=== PATIENT | female | born 1980 | race Caucasian/White ===

== ENCOUNTER 2017-04-14 17:03 | Emergency (ER) | payer BC ==
[~2017-04-14] VITALS: Ht 162.6 cm; Wt 108.9 kg
--- NOTE | 2017-04-14 17:07 | Emergency Room Report ---
History of Present Illness Time Seen by [id number] Presenting Problem in Triage Pt arrived: Presenting Problem: Onset of symptoms date/time:/ or onset unknown for: Treatment Prior to Arrival: MGMT CONSULTANT Provided by: Sepsis Risk Assessment: Temp: B/P: MAP: Pulse: Resp: Recent fever? Clinical Suspician of Infection? Mental Status: Sepsis Risk: Have you (or family members/close friends) recently traveled outside the [place]? If Yes, where/when: Have you had exposure to infectious disease within the past month? TB? Other? Specify: Source patient, RN notes reviewed Exam Limitations no limitations Comment cut finger with a clean hunting knife about 1 hour MGMT CONSULTANT while trying to open a box...cut left index finger Cardiac Chest Pain Chest pain indicative of cardiac No ALLERGIES Uncoded Allergies: PCN (Intermediate, I-HIVES 04/14/17) Home Medications Reported Medications No Known Home Medications History Medical History General Angina: No [place]: No Hypertension? Yes Hyperlipidemia? No COPD? No Asthma? No CVA? No Seizures? No Diabetes? No GB Disease: No MRSA? No TB? No Cancer? No Immunization Hx DT/Tetanus UNKNOWN Surgical Hx Previous Surgery?Y TONSILS Social History Alcohol Alcohol: No Review of Systems All Other Systems Reviewed and Negative Constitutional see HPI Skin see HPI Physical Exam Vital Signs Vital Signs Date Time Temp Pulse Resp B/P Pulse O2 O2 Flow FiO2 Ox Delivery Rate 04/14 172 97.9 89 18 177/103 98 General Appearance normal appearance, WD/WN, no apparent distress Respiratory Status No: respiratory distress. Cardiovascular normal exam, regular rate/rhythm Extremities 0.5 cm cut on lateral aspect of left index finger over the first phalanx Neurologic alert, director external communications II-XII nml as tested Medical Decision Making LABS/Meds/Orders Pt receiving controlled substance in ED? No Results/Orders Current Medication Orders Sig/Kely Start time Last Medication Dose Route Stop Time Status Admin Lidocaine HCl 0 .STK-MED ONE 04/14 173 DC .ROUTE Diphtheria/Pertussis/ 0.5 ML ONCE ONE 04/14 173 DC 04/14 Tetanus Vacc IM 04/14 1731 1741 Diphtheria/Pertussis/ 0 .STK-MED ONE 04/14 1729 DC Tetanus Vacc IM Procedures Laceration/Wound Repair Laceration/Wound Repair Risks/benefits discussed with pt/guardian? Yes Tetanus status not up to date, given in the ED Wound Location finger(s) Wound Length (cm) 0.5 Wound's Depth, Shape sucutaneous tissue Wound Explored clean Wound Prep Hibiclens, Saline Wound Debrided none Wound Repaired With sutures Sterile Dressing Applied Yes Departure Departure Time of Disposition 1751 Disposition DC Home or Self Care(routine) Clinical Impression Primary Impression: Laceration of left index finger w/o foreign body w/o damage to nail Qualifiers: Encounter type: initial encounter Qualified Code: S61.211A - Laceration without foreign body of left index finger without damage to nail, initial encounter Condition STABLE Patient Instructions DI for Laceration Repair -- Finger, Laceration Repair Additional Instructions Keep stitches dry for 2 days. Change dressing daily. Followup with PCP in 10 days to remove stitches. Discharge Counseling Counseled pt/family regarding diagnosis, home care, follow up needs Prescriptions Current Visit Scripts MUPIROCIN 2% (Bactroban Oint) 0 GM TP DAILY #1 TUBE ED Critical Care Critical Care No If Critical Care minutes are documented, the time involved in the performance of seperately reportable procedures was not counted toward critical care time documented. I directly delivered medical care to this critically ill and/or injured patient. Timely evaluation and treatment was necessary to address the significant organ system(s) dysfunction present in this patient. at 1755
--- NOTE | 2017-04-14 17:07 | Emergency Room Report ---
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 Clinical Suspician of Infection? Mental Status: Sepsis Risk: Have you (or family members/close friends) recently traveled outside the [place]? If Yes, where/when: Have you had exposure to infectious disease within the past month? TB? Other? Specify: Source patient, RN notes reviewed Exam Limitations no limitations Comment cut finger with a clean hunting knife about 1 hour ANIMAL CARE PROVIDER while trying to open a box...cut left index finger Cardiac Chest Pain Chest pain indicative of cardiac No ALLERGIES Uncoded Allergies: PCN (Intermediate, I-HIVES 04/14/17) Home Medications Reported Medications No Known Home Medications History Medical History General Angina: No [place]: No Hypertension? Yes Hyperlipidemia? No COPD? No Asthma? No CVA? No Seizures? No Diabetes? No GB Disease: No MRSA? No TB? No Cancer? No Immunization Hx DT/Tetanus UNKNOWN Surgical Hx Previous Surgery?Y TONSILS Social History Alcohol Alcohol: No Review of Systems All Other Systems Reviewed and Negative Constitutional see HPI Skin see HPI Physical Exam Vital Signs Vital Signs Date Time Temp Pulse Resp B/P Pulse O2 O2 Flow FiO2 Ox Delivery Rate 04/14 172 97.9 89 18 177/103 98 General Appearance normal appearance, WD/WN, no apparent distress Respiratory Status No: respiratory distress. Cardiovascular normal exam, regular rate/rhythm Extremities 0.5 cm cut on lateral aspect of left index finger over the first phalanx Neurologic alert, director advanced II-XII nml as tested Medical Decision Making LABS/Meds/Orders Pt receiving controlled substance in ED? No Results/Orders Current Medication Orders Sig/Kely Start time Last Medication Dose Route Stop Time Status Admin Lidocaine HCl 0 .STK-MED ONE 04/14 173 DC .ROUTE Diphtheria/Pertussis/ 0.5 ML ONCE ONE 04/14 173 DC 04/14 Tetanus Vacc IM 04/14 1731 1741 Diphtheria/Pertussis/ 0 .STK-MED ONE 04/14 1729 DC Tetanus Vacc IM Procedures Laceration/Wound Repair Laceration/Wound Repair Risks/benefits discussed with pt/guardian? Yes Tetanus status not up to date, given in the ED Wound Location finger(s) Wound Length (cm) 0.5 Wound's Depth, Shape sucutaneous tissue Wound Explored clean Wound Prep Hibiclens, Saline Wound Debrided none Wound Repaired With sutures Sterile Dressing Applied Yes Departure Departure Time of Disposition 1751 Disposition DC Home or Self Care(routine) Clinical Impression Primary Impression: Laceration of left index finger w/o foreign body w/o damage to nail Qualifiers: Encounter type: initial encounter Qualified Code: S61.211A - Laceration without foreign body of left index finger without damage to nail, initial encounter Condition STABLE Patient Instructions DI for Laceration Repair -- Finger, Laceration Repair Additional Instructions Keep stitches dry for 2 days. Change dressing daily. Followup with PCP in 10 days to remove stitches. Discharge Counseling Counseled pt/family regarding diagnosis, home care, follow up needs Prescriptions Current Visit Scripts MUPIROCIN 2% (Bactroban Oint) 0 GM TP DAILY #1 TUBE ED Critical Care Critical Care No If Critical Care minutes are documented, the time involved in the performance of seperately reportable procedures was not counted toward critical care time documented. I directly delivered medical care to this critically ill and/or injured patient. Timely evaluation and treatment was necessary to address the significant organ system(s) dysfunction present in this patient. at 1755
[2017-04-14 18:06] VITALS: BP 136/47
--- OUTSIDE RECORDS SUMMARY | 2017-04-24 23:29 | External Medical Summary Rpt | CCD ---
Author Author BETTY Address Unknown Phone [email or web address] Purpose Continuity of Care Document - through 2016
--- OUTSIDE RECORDS SUMMARY | 2017-04-24 23:29 | External Medical Summary Rpt | CCD ---
Author Author BETTY Address Unknown Phone [email or web address] Purpose Continuity of Care Document - through 2016
--- OUTSIDE RECORDS SUMMARY | 2017-04-24 23:29 | External Medical Summary Rpt ---
Author Author BETTY Treviño, BETTY Treviño Organization [employer] Address Unknown Phone Unavailable
--- OUTSIDE RECORDS SUMMARY | 2017-04-24 23:29 | External Medical Summary Rpt | CCD ---
Author Author BETTY Address Unknown Phone Purpose Continuity of Care Document - through 2016
--- OUTSIDE RECORDS SUMMARY | 2017-04-24 23:29 | External Medical Summary Rpt | CCD ---
Demographics Preferred Language Japanese Marital Status Unknown Protestant Affiliation Unknown Race Unknown Ethnic Group Unknown Author Author , BETTY HERNÁNDEZ Address Unknown Phone Immunization Unable to retrieve immunization data due to connection failure with Immunization Registry. Please try again later.
--- OUTSIDE RECORDS SUMMARY | 2017-04-24 23:29 | External Medical Summary Rpt | CCD ---
Demographics Preferred Language Thai Marital Status Unknown Anabaptism Affiliation Unknown Race Unknown Ethnic Group Unknown Author Author , BETTY HERNÁNDEZ Address Unknown Phone Immunization Unable to retrieve immunization data due to connection failure with Immunization Registry. Please try again later.
== END 2017-04-14 18:07 | disposition home or self-care (01) ==
LOC: ER 17:03
PROC: 0HQGXZZ Repair Left Hand Skin, External Approach (ICD-10-PCS; principal; 2017-04-14)
DX: S61.211A Laceration without foreign body of left index finger without damage to nail, initial encounter (principal); Z23 Encounter for immunization; Z88.0 Allergy status to penicillin; I10 Essential (primary) hypertension